=== PATIENT | male | born 1980 | race Hispanic/Latino ===

== ENCOUNTER 2022-10-18 16:03 | Emergency (ER) | payer BC, OTHER ==
[2022-10-18] MEDS ORDERED: Boostrix 0.5 ML (Tdap) VIAL (>/=7 yrs of age) ONE (16:14)
[2022-10-18] MEDS ORDERED: Lidocaine 1% (PF) 30 ML VIAL ONE (16:38)
== END 2022-10-18 18:04 | disposition home or self-care (01) ==
LOC: BURERS 16:03
DX: S91.114A Laceration without foreign body of right lesser toe(s) without damage to nail, initial encounter (principal); Z23 Encounter for immunization; W26.8XXA Contact with other sharp object(s), not elsewhere classified, initial encounter
CPT/HCPCS: 90471; 90715; J2001